=== PATIENT | male | born 1980 | race Caucasian/White ===

== ENCOUNTER 2017-03-13 15:25 | Emergency (ER) | payer SELFPAY ==
[~2017-03-13 15:25] MED LIST: Sodium Chloride 0.9% 1,000 ML BAG ONE
[2017-03-13 15:57] LABS: #Basophils 0.1 thou/uL (0.0-0.2); #Lymphocytes 2.2 thou/uL (1.20-3.40); #Monocytes 0.4 thou/uL (0.11-0.59); #Neutrophils 2.5 thou/uL (1.40-6.50); %Basophils 1.5 % (0.0-1.0); %Eosinophils 0.4 % (0.0-10.0); %Lymphocytes 43.2 % (21.0-51.0); %Monocytes 7.2 % (0.0-10.0); %Neutrophils 47.7 % (42.0-75.0); Mean Corpuscular HGB CONC 36.3 g/dL (32.0-36.0); Mean Corpuscular Hemoglobin 33.4 pg (27.0-31.0); Mean Corpuscular Volume 92.1 fl (80.0-94.0); Mean Platelet Volume 7.9 fL (7.4-10.4); Platelet Count 222 thou/uL (130-400); RBC Distribution Width 12.1 % (11.5-14.5); White Blood Cell (WBC) Count 5.1 thou/uL (4.8-10.8)
[2017-03-13 15:58] LABS: Amphetamine Not Detected (NotDetected); Barbiturates Screen Not Detected (NotDetected); Benzodiazepine Screen Not Detected (NotDetected); Cocaine Metabolite Screen Not Detected (NotDetected); Medtox Control Line Valid? VALID (VALID); Methadone Not Detected (NotDetected); Methamphetamine Not Detected (NotDetected); Opiate Screen Not Detected (NotDetected); Oxycodone Screen Not Detected (NotDetected); Phencyclidine (PCP) Not Detected (NotDetected); THC/Cannabinoid Screen Not Detected (NotDetected); Tricyclic Screen Not Detected (NotDetected)
[2017-03-13 15:59] LABS: Bilirubin Negative (Negative); Blood, Urine Negative (Negative); Clarity Clear (Clear); Glucose, Urine (Dipstick) Negative (Negative); Leukocyte Negative (Negative); Nitrite Negative (Negative); Protein, Urine (Dipstick) Negative (Neg-Trace); Specific Gravity, Urine 1.004 (1.002-1.036); Urobilinogen 0.2 mg/dL (0.2-1.0)
[2017-03-13 16:01] LABS: Bacteria/HPF Rare-Few HPF (None Seen); RBC/HPF None Seen HPF (0-3); Squamous Epithelial 0-3 HPF (0-3); WBC/HPF None Seen HPF (0-3)
[2017-03-13 16:02] LABS: INR-International Normal Ratio 0.9; PTT 24.7 SEC (22.9-36.1); Prothrombin Time 12.1 SEC (12.0-14.7)
[2017-03-13 16:10] LABS: Acetaminophen Less than 6.0 mcg/mL (10.0-30.0); Alcohol 379 mg/dL (Less than 10); CK (CPK) 99 U/L (30-200); Magnesium 2.9 mg/dL (1.6-2.6); Salicylate Less than 8.0 mg/dL (15.0-30.0)
[2017-03-13 16:13] LABS: Anion Gap 17 mmol/L (10-20); BUN (Urea Nitrogen) 8 mg/dL (8.9-20.6); CKMB 0.6 ng/mL (0-6.6); Calc. Creatinine Clearance 0 mL/min (70-130); Carbon Dioxide 22 mmol/L (22-29); Chloride 112 mmol/L (98-107); Estimated GFR-MDRD 88; Potassium 4.3 mmol/L (3.5-5.1); Sodium 147 mmol/L (136-145); Troponin I Less than 0.010 ng/mL (< 0.028)
[2017-03-13 16:14] LABS: ALT (SGPT) 77 U/L (8-55); AST (SGOT) 42 U/L (5-34); Acetaminophen Less than 6.0 mcg/mL (10.0-30.0); Albumin 4.2 g/dL (3.5-5.0); Alcohol 385 mg/dL (Less than 10); Alkaline Phosphatase 84 U/L (40-150); Bilirubin, Total 0.7 mg/dL (0.2-1.2); Calcium 8.5 mg/dL (7.8-10.44); Globulin 2.8 g/dL (2.4-3.5); Glucose 119 mg/dL (70-105); Salicylate Less than 8.0 mg/dL (15.0-30.0)
[2017-03-13] MEDS ORDERED: Ketorolac Tromethamine 30 MG/ML VIAL ONE (16:24)
[2017-03-13] MEDS ORDERED: Ondansetron HCl/PF 4 MG/2 ML Vial ONE (16:24)
--- NOTE | 2017-03-13 16:49 | RAD ---
SINGLE VIEW OF THE CHEST: History: Suicidal ideation. FINDINGS: Single view of the chest shows a normal sized cardiomediastinal silhouette. There is no evidence of consolidation, mass, or pleural effusion. The bones are unremarkable. IMPRESSION: No evidence of acute cardiopulmonary disease. POS: [facility]
[2017-03-13] MEDS ORDERED: Promethazine HCl 25 MG/ML VIAL ONE (19:44)
== END 2017-03-13 23:30 | disposition home or self-care (01) ==
LOC: MADERS 15:25
DX: F10.129 Alcohol abuse with intoxication, unspecified (principal); F41.9 Anxiety disorder, unspecified; F17.210 Nicotine dependence, cigarettes, uncomplicated; C62.92 Malignant neoplasm of left testis, unspecified whether descended or undescended; C77.9 Secondary and unspecified malignant neoplasm of lymph node, unspecified; Z79.891 Long term (current) use of opiate analgesic; Y90.8 Blood alcohol level of 240 mg/100 ml or more
CPT/HCPCS: 36415; 71010; 80053; 80306; 80307; 81001; 82553; 83735; 84484; 85025; 85610; 85730; 93005; 96361; 96374; 96375; J1885; J2405; J2550; J7050